=== PATIENT | male | born 1975 | race Caucasian/White ===

== ENCOUNTER 2017-12-09 00:41 | Outpatient (CLI) | payer MEDICARE, MEDICAID, SELFPAY ==
--- NOTE | 2017-12-09 15:06 | DI.US_ITS ---
SYMPTOMS/DIAGNOSIS: BLADDER WALL THICKENING, N32.89, ? HYDRONEPHROSIS RENAL ULTRASOUND: Comparison is made with CT of the abdomen and pelvis dated September,, which showed prominent thickening of the bladder wall. The bladder wall appears thick on the current exam at 7 mm while the bladder was distended. The prevoid volume measured 149 cc. The postvoid residual measured 11 cc. The wall also appears mildly trabeculated. No focal masses are identified. The kidneys appear small in size, but show normal parenchymal thickness and echogenicity. No hydronephrosis or perinephric collections are seen. The right kidney measures 8.9 cm in length. The left kidney measures 8.5 cm in length. IMPRESSION: Thickened, trabeculated bladder wall. No evidence of hydronephrosis.
== END 2017-12-09 01:01 ==
PROVIDERS: PCP Family Medicine; Visit Provider Urology
DX: N32.89 Other specified disorders of bladder (principal)
CPT/HCPCS: 76770

== ENCOUNTER → 2017-12-09 14:58 | Outpatient (BNVA) | payer MEDICARE, MEDICAID, SELFPAY | PROVIDERS: PCP Family Medicine; Visit Provider Urology | DX: R69 Illness, unspecified (principal) ==

== ENCOUNTER 2018-12-22 00:46 | Outpatient (CLI) | payer MEDICARE, MEDICAID, SELFPAY ==
--- NOTE | 2018-12-22 14:02 | DI.US_ITS ---
EXAM: US RENAL CLINICAL HISTORY: bladder wall thickening, ?Hydronephrosis, N32.89. TECHNIQUE: Ultrasound was performed using standard protocol. COMPARISON: US renal from 12/09/2017 FINDINGS: The right kidney measures 8.9 x 4.0 x 4.4 cm. The left kidney measures 8.9 x 5.4 x 3.7 cm. There is n o evidence of hydronephrosis or nephrolithiasis. The prevoid bladder contains 44 cc, the postvoid bl adder contains 0. Bilateral ureteral jets are visualized. The bladder wall is 2 mm thick and there i s a question regarding mild trabeculation.
== END 2018-12-22 01:06 ==
PROVIDERS: PCP Family Medicine; Visit Provider Urology
DX: N32.89 Other specified disorders of bladder (principal); Q90.9 Down syndrome, unspecified
CPT/HCPCS: 76770; 99213

== ENCOUNTER 2019-04-15 12:02 | Outpatient (REF) | payer MEDICARE, MEDICAID, SELFPAY ==
[2019-04-15 18:33] LABS: TSH (W/Ref FT4) 2.62 uIU/mL (0.36-3.74)
== END 2019-04-15 12:22 ==
LOC: LBN 12:02
PROVIDERS: PCP Family Medicine; Visit Provider Family Medicine
DX: R63.4 Abnormal weight loss (principal)
CPT/HCPCS: 84443

== ENCOUNTER 2019-05-31 07:47 | Outpatient (CLI) | payer MEDICARE, MEDICAID, SELFPAY ==
[2019-05-31 09:14] LABS: ALT 27 U/L (16-63); AST 23 U/L (15-37); Albumin 3.4 g/dL (3.4-5.0); Alkaline Phosphatase 60 U/L (46-116); Anion Gap 5.7 mmol/L (3-11); BUN 26 mg/dL (7-18); Bilirubin, Total 0.4 mg/dL (0.2-1.0); CO2 31.3 mmol/L (21.0-32.0); CREATININE 1.37 mg/dL (0.70-1.30); Calcium 8.5 mg/dL (8.5-10.1); Chloride 107 mmol/L (98-107); Estimated GFR 55.94 (mL/min/1.73m2); Glucose 88 mg/dL (74-106); Potassium 4.7 mmol/L (3.5-5.1); Sodium 144 mmol/L (136-145); Total Protein 6.5 g/dL (6.4-8.2)
[2019-06-01 10:26] LABS: Prealbumin 29 mg/dL (20-40)
[2019-06-02 13:10] LABS: Tissue Transglutaminase Ab IgA <1.2 U/mL; Tissue Transglutaminase Ab IgG 6.2 U/mL
== END 2019-05-31 08:07 ==
PROVIDERS: PCP Family Medicine; Visit Provider Psychiatry & Neurology Child & Adolescent Psychiatry
DX: R63.4 Abnormal weight loss (principal)
CPT/HCPCS: 36415; 80053; 83516; 84134

== ENCOUNTER 2019-09-07 14:37 | Outpatient (REF) | payer MEDICARE, MEDICAID, SELFPAY ==
[2019-09-07 18:57] LABS: Abs Immature Grans 0.01 k/cumm (0.0-0.09); Absolute Basophil Count 0.05 k/cumm (0.0-0.2); Absolute Eosinophil Count 0.02 k/cumm (0.0-0.7); Absolute Lymphocyte Count 0.83 k/cumm (1.2-3.4); Absolute Monocyte Count 0.41 k/cumm (0.11-0.7); Absolute Neutrophil Count 3.01 k/cumm (1.2-6.7); Basophils % 1.2; Eosinophils % 0.5; HCT 41.1 % (40.0-50.0); HGB 14.1 g/dL (13.5-17.5); Immature Grans % 0.2 %; Lymphocytes % 19.2; Mean Corp. HGB Concentration 34.3 g/dL (32.0-36.0); Mean Corpuscular Hemoglobin 33.3 pg (27.0-33.0); Mean Corpuscular Volume 97.2 fL (80-95); Mean Platelet Volume 10.9 fL (8.0-11.0); Monocytes % 9.5; Neutrophils % 69.4; Platelet Count 190 x1000/uL (130-400); RBC 4.23 m/cumm (4.50-6.00); RBC Distribution Width 13.2 % (11.8-14.1); White Blood Cell Count 4.33 k/cumm (4.4-10.8)
[2019-09-07 19:09] LABS: Creatine Kinase 66 U/L (39-308); TSH (W/Ref FT4) 1.79 uIU/mL (0.36-3.74)
[2019-09-07 19:26] LABS: ESR 10 mm/hr (0-15)
[2019-09-09 13:03] LABS: Lyme Ab w Rflx to Lyme Confirm Negative (Negative)
[2019-09-10 20:05] LABS: Anaplasma phagocytophilum Negative (Negative); B. miyamotoi PCR Negative (Negative); Babesia divergens/MO-1 Negative (Negative); Babesia duncani Negative (Negative); Babesia microti Negative (Negative); Ehrlichia chaffeensis Negative (Negative); Ehrlichia ewingii/canis Negative (Negative); Ehrlichia muris eauclairensis Negative (Negative)
== END 2019-09-07 14:57 ==
LOC: LBN 14:37
PROVIDERS: PCP Family Medicine; Visit Provider Family Medicine
DX: R63.4 Abnormal weight loss (principal); Z79.1 Long term (current) use of non-steroidal anti-inflammatories (NSAID); I82.502 Chronic embolism and thrombosis of unspecified deep veins of left lower extremity; Q90.9 Down syndrome, unspecified
CPT/HCPCS: 82550; 85652; 87798; 84443; 85025; 86618

== ENCOUNTER 2019-10-18 15:12 | Outpatient (REF) | payer MEDICARE, MEDICAID, SELFPAY | END 2019-10-18 15:32 | LOC: LBN 15:12 | PROVIDERS: PCP Family Medicine; Visit Provider Family Medicine | DX: R63.4 Abnormal weight loss (principal) | CPT/HCPCS: 82710; 87177 ==

== ENCOUNTER 2020-08-28 10:50 | Emergency (ER) | payer MEDICARE, MEDICAID, SELFPAY ==
[2020-08-28 10:54] VITALS: BP 99/50; PULSE 53; RESP 20; TEMP 36.6; O2SAT 100
--- NOTE | 2020-08-28 11:17 | ED.GENADUL_ITS ---
Discharge Plan Disposition Patient Disposition: HOME Condition: Good Discharge Details Clinical Impression: Muscle strain Primary Care Provider: Mata Herrmann ED Provider: Yesy Orellana Home Meds and New Rx's Prescriptions: Continued clotrimazole 1 % cream 1 applic TP BID Qty: 30 RF: 1 trazodone 50 mg tablet 25 mg PO QHS PRNRF: 0 Hold Instructions: Changed by Provider multivitamin [Once Daily] 1 EACH tablet 1 ea PO DAILY Qty: 90 RF: 3 calcium carbonate-vitamin D3 [Calcium 600 + D(3)] 1 EACH tablet 2 ea PO DAILY Qty: 180 RF: 3 acetaminophen 500 MG tablet 500 mg PO Q6H PRN Qty: 90 RF: 0 warfarin 5 mg tablet 5 mg PO DIRECTED Qty: 105 RF: 3 aripiprazole [Abilify] 5 mg tablet 2 mg PO DAILY RF: 0 Discharge Instructions Instructions: Muscle Strain (ED) Additional Instructions: Encourage rest, ice or heat, stretching, elevation. May use Tylenol to help with discomfort. INR 2.0 today. Please follow-up with primary care in 2 weeks for reevaluation. If you develop any new worsening symptoms please seek care ur gently once again. Referrals: Mata Herrmann DO [Primary Care Provider] - Discharge Data Discharge Date/Time-TO BE ENTERED AT DEPARTURE: 08/28/20 12:49 Medical Decision Making Patient is a pleasant 45-year-old male brought in by his caregiver with concerns for swelling on the posterior aspect of his left thigh. No known trauma. Past medical history pertinent for ADHD, bilateral DVTs, Down syndrome, she used Covid syndrome, hypercoagulable. Patient was picked up by caregiver this morning. She reports that he was tugging at his left thigh. When she evaluated she is concerned for swelling and erythema. Patient not complaining of pain at this time. On exam, patient appears nontoxic. Patient is hypertensive but this is baseline for the patient. Heart rate is also in the 50s which again is apical for him. Lungs are clear. Denies any shortness of breath. Exam of the left lower extremity there is no significant abnormality. He does have a small amount of swelling along the muscle body of the hamstring. No tenderness. Patient has a rash that spreads over the buttock and down the posterior aspect of both thighs. This is not red, hot or tender. More consistent with chronic discoloration or changes. He has been treated for fungal infection in this area historically. Tenderness attachments appear to be intact, no bruising or evidence of trauma. He has good strength bilaterally. No abnormality noted on the anterior aspect. 2+ distal pulses. Does have some varicose veins along the medial thighs bilaterally, slightly more prominent on the left than the right. INR was last checked 2 weeks ago and is 2.4. Patient does not clinically appear consistent with DVT. However, given his history I do feel that evaluation with D-dimer and checking INR would be appropriate. Most consistent with muscular source of swelling and discomfort. I see no evidence of significant trauma. Will also check for electrolyte abnormalities that may be causing muscle spasm. Per home care provider, patient drinks large amount of water. Labs reviewed. No leukocytosis. Stable H&H. D-dimer within normal limits. INR 2. No significant electrolyte abnormalities. Creatinine 1.3 which is baseline for the patient. Discussed these findings with the patient as well as his home care provider. They are reporting at this time that more history was obtained from family who was with the patient htis weekend. Sounds like this may have been brought on by riding a bike and having difficulty switching gears. I advised to treat for muscular discomfort. Encouraged rest, ice and/or heat, Tylenol as needed for discomfort. We will continue warfarin at current dosing. Advise follow-up with primary care in 2 weeks for reevaluation. All the questions and concerns were addressed in agreement with plan. HPI General Mode of arrival: ambulatory . Date/Time Provider Initiated Documentation: 08/28/20 11:14 . Limitations to Documentation: no limitations (home care provider helping with hx) . Information obtained by: patient, family and RN notes reviewed . History of Present Illness 45 year old M presents to the emergency department with the chief complaint of left posterior thigh pain, Quality is described as aching, and is localized to the left and lower extremity. Patient reports no radiation. Patient started experiencing this unknown and it has been constan t. No relieving factors improve symptom(s), No exacerbating factors reported . Patient notes no other symptoms.; denies chest pain, fever/chills and shortness of breath. Patient did receive the following treatments prior to arrival, none Related Data Home Medications Medication Instructions Recorded Confirmed multivitamin [Once Daily] 1 ea PO DAILY #90 tab 09/05/14 08/28/20 calcium carbonate-vitamin D3 2 ea PO DAILY #180 cap 05/15/15 08/28/20 [Calcium 600 + D(3)] acetaminophen 500 mg PO Q6H PRN #90 tab-cap 07/31/17 08/28/20 clotrimazole 1 % topical cream 1 applic TP BID #30 gm 06/22/18 08/28/20 trazodone 50 mg tablet 25 mg PO QHS PRN tab 08/31/18 04/07/20 warfarin 5 mg tablet 5 mg PO DIRECTED #105 tab 09/02/19 08/28/20 aripiprazole 5 mg tablet 2 mg PO DAILY tab 09/27/19 08/28/20 Previous Rx's Medication Instructions Recorded acetaminophen 500 mg PO Q6H PRN #90 tab-cap 07/31/17 clotrimazole 1 % topical cream 1 applic TP BID #30 gm 06/22/18 warfarin 5 mg tablet 5 mg PO DIRECTED #105 tab 09/02/19 Allergies Allergy/AdvReac Type Severity Reaction Status Date / Time bacitracin [From Cortisporin] Allergy Unknown ear drops Verified 08/28/20 10:59 colistin Allergy Unknown unknown Verified 08/28/20 10:59 hydrocortisone Allergy Unknown unknown Verified 08/28/20 10:59 neomycin sulfate Allergy Unknown ear drops Verified 08/28/20 10:59 [From Cortisporin] polymyxin B Allergy Unknown ear drops Verified 08/28/20 10:59 [From Cortisporin] THONZONUM Allergy Unknown unknown Uncoded 08/28/20 10:59 General Stated Complaint: Vascular MING: 3 Review of Systems Constitutional Constitutional: Reports as per HPI, Denies chills, Denies fever(s), Denies headache(s) and Denies weakness ENT Ears, Nose, Mouth, and Throat: Denies headache(s) Cardiovascular Cardiovascular: Reports as per HPI Respiratory Respiratory: Reports as per HPI and Denies cough Musculoskeletal Musculoskeletal: Reports as per HPI and Denies tingling Integumentary/Breasts Skin/Breast: Reports as per HPI, Reports rash and Denies wounds Neurologic Neurologic: Reports as per HPI, Denies headache(s), Denies tingling, Denies paresthesias and Denies weakness [facility] Medical History (Updated 08/28/20 @ 12:44 by ESTHER Reyez) ADHD 02/12/10 Attention-deficit hyperactivity disorder, predominantly hyperactive type (06/04/11) rx Dr Art johnson ([facility]) Chronic venous embolism and thrombosis of deep vessels of distal end of both lo wer extremities (06/04/11) Depression 11/30/99 Down's syndrome 09/11/05 DVT (deep venous thrombosis) DVT (deep venous thrombosis) DVT (deep venous thrombosis) left calf 10/01/07 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 Hypercoagulable state, primary (05/01/10) antiphospholipid syndrome: positive Lupus anticoagulant; elevated d-dimer; prior DVT L leg 2007 and superficial phlebitis L leg 2008 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 Suicide Sister Celina's disease age unknown Social History Smoking/Tobacco Use Status: Never Smoking risk assessment performed?: Yes Alcohol Intake: never Drug use: Never Caregiver/Support person: Yes Household members: family and caregiver Housing: house Number of Children: 0 Communication Needs: Corrective Lenses and Language Barriers current occupation: part maker cleaning [employer] What type of physical activity do you participate in: regular exercise Duration: < 15 minutes/day Frequency: 5-6 times per week Seatbelt use: always Drive intox or ride w/intox fast food delivery driver: No Working smoke detector in home: Yes Carbon monox detector in home: Yes Exam Const General: cooperative, healthy appearing, comfortable, no acute distress, well developed and well groomed Nutritional Appearance: average body habitus and well nourished Orientation: alert and awake Resp Effort & Inspection: normal respiratory effort, able to speak in complete sentences and no respiratory distress Auscultation: clear to auscultation bilaterally Cardio Rate: regular rate Rhythm: regular rhythm Heart Sounds: S1 normal and S2 normal Skin General skin exam: other (chronic appearing discoloration to buttock) Full body images: 1. Brownish pink discoloration. No pain with palpation. Not hot. No focal area of pain/fluctuance. Soft. Not consistent with infection. Neuro General: patient alert and patient awake Cognition: normal cognition Speech: speech normal Gait: normal gait Motor: muscle tone normal throughout Sensory Exam: no sensory deficits noted Extrem Left lower extremity: normal to inspection, full ROM, normal capillary refill, no joint enlargement, hip/thigh Details: normal to inspection, swelling (posterior medial muscle body feels tight, no real swelling) and normal ROM; no tenderness, no abrasions, no lacerations, no ecchymosis, no crepitus, no deformity and no unusual warmth, knee Details: normal to inspection and normal ROM; no tenderness, no swelling and no deformity, lower leg Details: normal to inspection and no edema; no tenderness, no localized swelling and no palpable cords, ankle Details: normal to inspection, no edema and normal ROM; no tenderness, no swelling and achilles tendon exam normal and foot Details: vascular exam Details: dorsalis pedis pulse present; no edema Psych Appearance: grossly normal and well kempt Mental Status: mental status grossly normal Speech and Movement: speech and movement normal Course Vital Signs Vital signs: Vital Signs Temperature 36.6 C 08/28/20 10:54 Pulse 53 L 08/28/20 10:54 Respiratory Rate 20 08/28/20 10:54 Blood Pressure 99/50 L 08/28/20 10:54 Pulse Oximetry 100 08/28/20 10:54 Temperature 36.6 C 08/28/20 10:54 Temperature Source Skin 08/28/20 10:54 Pulse 53 L 08/28/20 10:54 Respiratory Rate 20 08/28/20 10:54 Respiratory Effort Non-Labored 08/28/20 11:00 Blood Pressure 99/50 L 08/28/20 10:54 Blood Pressure Position Sitting 08/28/20 10:54 Pulse Oximetry 100 08/28/20 10:54 Oxygen Delivery Method Room Air 08/28/20 10:54 Oxygen Flow Rate 0 08/28/20 10:54 Pain Level 10 08/28/20 10:54
[2020-08-28 11:53] LABS: Abs Immature Grans 0.02 10^3/uL (0.0-0.06); Absolute Basophil Count 0.08 10^3/uL (0.0-0.2); Absolute Eosinophil Count 0.04 10^3/uL (0.0-0.7); Absolute Lymphocyte Count 1.05 10^3/uL (1.2-3.4); Absolute Monocyte Count 0.61 10^3/uL (0.1-0.8); Absolute Neutrophil Count 3.94 10^3/uL (1.2-6.7); Basophils % 1.4; Eosinophils % 0.7; HCT 42.4 % (40.0-50.0); HGB 14.5 g/dL (13.5-17.5); Immature Grans % 0.3; Lymphocytes % 18.3; MCH 33.3 pg (27.0-33.0); MCHC 34.2 % (32.0-36.0); MCV 97.5 fL (80-95); MPV 10.2 fL (8.0-11.0); Monocytes % 10.6; Neutrophils % 68.7; Nucleated RBC 0 %; Platelet Count 200 10^3/uL (130-400); RBC 4.35 10^6/uL (4.36-5.78); RDW 13.6 % (11.8-14.1); RDW-SD 49.4 fL; WBC 5.74 10^3/uL (4.4-10.8)
[2020-08-28 12:08] LABS: BUN 28 mg/dL (7-18); CREATININE 1.3 mg/dL (0.70-1.30); Calcium 8.7 mg/dL (8.5-10.1); Chloride 105 mmol/L (98-107); Estimated GFR 59.17 (mL/min/1.73m2); Glucose 94 mg/dL (74-106); PTT Activated 27.2 sec (21.0-27.5); Potassium 4.2 mmol/L (3.5-5.1); Prothrombin Time 20.1 sec (9.3-11.0); Sodium 142 mmol/L (136-145)
[2020-08-28 12:31] LABS: D-Dimer 498 ng/mlFEU (<500)
== END 2020-08-28 12:49 | disposition home or self-care (01) ==
PROVIDERS: Emergency Provider Physician Assistant; PCP Family Medicine
DX: S76.312A Strain of muscle, fascia and tendon of the posterior muscle group at thigh level, left thigh, initial encounter (principal); X58.XXXA Exposure to other specified factors, initial encounter; R21 Rash and other nonspecific skin eruption; Z86.718 Personal history of other venous thrombosis and embolism
CPT/HCPCS: 36415; 80048; 99284; 85025; 85379; 85610; 85730; 99283

== ENCOUNTER 2021-04-12 08:05 | Emergency (ER) | payer MEDICARE, MEDICAID, SELFPAY ==
[2021-04-12] VITALS (35 sets, daily range): BP systolic 91–104; BP diastolic 42–70; PULSE 61–82; RESP 10–28; TEMP 36.8–37.8; O2SAT 95–100
--- NOTE | 2021-04-12 08:00 | RT.EKG_ITS ---
APPROVED REPORT Exam: Resting ECG Reason for Exam: SYNCOPAL EPISODE Patient Location: E HR:65 bpm ECG Measurements Heart Rate 65 AXIS MS 131 P 68 QRSd 101 QRS 61 QT 363 T 57 QTc 378 Conclusion Sinus rhythm...normal P axis, V-rate 60- 99 ST elev, probable normal early repol pattern...ST elevation, age<55 PHysician: minimal <1mm elevation in V1 and V3. Does not meet STEMI criterion, likely repolerization, no depression
--- NOTE | 2021-04-12 08:30 | ED.GENADUL_ITS ---
Discharge Plan Disposition Patient Disposition: HOME Condition: Stable Discharge Details Clinical Impression: Orthostatic hypotension, Cellulitis Primary Care Provider: Mata Herrmann ED Provider: Jake Schmid Home Meds and New Rx's Prescriptions: New doxycycline hyclate 100 mg tablet 100 mg PO BID 7 Days Qty: 14 RF: 0 Continued clotrimazole 1 % cream 1 applic TP BID Qty: 30 RF: 1 multivitamin [Once Daily] 1 EACH tablet 1 ea PO DAILY Qty: 90 RF: 3 calcium carbonate-vitamin D3 [Calcium 600 + D(3)] 1 EACH tablet 2 ea PO DAILY Qty: 180 RF: 3 acetaminophen 500 MG tablet 500 mg PO Q6H PRN Qty: 90 RF: 0 aripiprazole [Abilify] 5 mg tablet 2 mg PO DAILY RF: 0 warfarin 5 mg tablet 5 mg PO DIRECTED Qty: 114 RF: 3 Discharge Instructions Instructions: Cellulitis (ED), Syncope (ED) Additional Instructions: Continue to monitor symptoms. If you notice any excessive spread of redness to the chest, worsening of condition, or new symptoms that are concerning please return to the emergency department immediately. Otherwise watch for any bleeding as there is a slight potential interaction between blood thinner and antibiotic. It is important that you follow primary care provider next week for reassessment of condition and to ensure improvement. Referrals: Mata Herrmann DO [Primary Care Provider] - 3 days (Prefer to have follow-up early next week for reassessment patient's condition.) Discharge Data Discharge Date/Time-TO BE ENTERED AT DEPARTURE: 04/12/21 12:10 Medical Decision Making Patient presenting to emergency department with caregiver due to near syncopal episode. Caregiver reports that patient was sitting and eating breakfast when he stood up then started to become dazed. She could tell he was getting somewhat weak and supported him slowly to the ground. Her and her were able to assist him to lying on the couch and after a couple minutes patient was back to normal ambulatory with no further symptoms. Patient denies pain or discomfort, focal neurological deficits, and patient states memory of the entire event. Caregiver denies any full syncope or loss of consciousness. History is somewhat limited due to patient having communication deficit due to Down syndrome. Plan to check labs including EKG, INR, and provide fluid support given low blood pressure. Did review previous blood pressures and this is not completely abnormal but chief working diagnosis at this time is orthostatic hypotension. 0900-reviewed labs that does show a leukocytosis. Nurse did report that patient had abnormal lung sounds in the left lower lobe with deep inspiration. I did not appreciate this on initial exam but will plan to do COVID testing and chest x-ray. Patient is now febrile so patient given acetaminophen pending results.. 1010 patient COVID-negative 1100-chest x-ray is unremarkable for acute findings and no signs of pneumonia. D-dimer is negative so doubt thromboembolic event. Largest suspicion is of orthostatic hypotension for initial event but secondary cellulitic infection of the anterior right chest wall. Patient's caregiver and siblings do state patient has history of cellulitis. Patient placed on antibiotic and return and follow-up precautions were discussed. Patient will be staying with his brother over the weekend and his brother is present discussed findings along with all of these recommendations. After discussion of diagnosis and plan of care patient/family care including for has no further needs, questions, or concerns and states clear understanding to return to the emergency department for any worsening symptoms. Patient placed on follow-up list for primary care follow-up to recheck cellulitis. Did discuss with brother and patient in light of potential interaction of warfarin and doxycycline. Given significant area of erythema along with systemic symptoms of fever I do feel that broader spectrum would be preferred over Keflex. After discussion of risk versus benefit there was no further questions and brother understood to monitor patient while on both medications. Lab Data Lab results reviewed: Yes I reviewed the patient's lab results. Labs: Laboratory Tests Range/Units 04/12/21 04/12/21 04/12/21 08:45 08:45 08:45 WBC (4.4-10.8) 10^3/uL 12.73 H RBC (4.36-5.78) 10^6/uL 4.62 Hgb (13.5-17.5) g/dL 15.2 Hct (40.0-50.0) % 45.4 MCV (80-95) fL 98.3 H MCH (27.0-33.0) pg 32.9 MCHC (32.0-36.0) % 33.5 RDW (11.8-14.1) % 13.4 Plt Count (130-400) 10^3/uL 161 MPV (8.0-11.0) fL 10.1 Immature Gran % 0.7 Neutrophils % 87.5 Lymphocytes % 4.4 Monocytes % 6.9 Eosinophils % 0.0 Basophils % 0.5 Nucleated RBC % % 0 Absolute Neutrophils (1.2-6.7) 10^3/uL 11.14 H Absolute Lymphocytes (1.2-3.4) 10^3/uL 0.56 L Absolute Monocytes (0.1-0.8) 10^3/uL 0.88 H Absolute Eosinophils (0.0-0.7) 10^3/uL 0.00 Absolute Basophils (0.0-0.2) 10^3/uL 0.06 PT (9.3-11.0) sec 20.2 H INR (0.9-1.1) 2.0 H APTT (21.0-27.5) sec 34.1 H D-Dimer (<500) ng/mlFEU Sodium (136-145) mmol/L 137 Potassium (3.5-5.1) mmol/L 4.2 Chloride (98-107) mmol/L 100 Carbon Dioxide (21.0-32.0) mmol/L 31.7 Anion Gap (3-11) mmol/L 5.3 BUN (7-18) mg/dL 18 Creatinine (0.70-1.30) mg/dL 1.5 H Estimated GFR/1.73 m2 (mL/min/1.73m2) 49.95 Glucose (74-106) mg/dL 141 H Calcium (8.5-10.1) mg/dL 8.7 Magnesium (1.8-2.4) mg/dL 1.8 Total Bilirubin (0.2-1.0) mg/dL 0.5 AST (15-37) U/L 25 ALT (16-63) U/L 25 Alkaline Phosphatase (46-116) U/L 73 Troponin I (<or=60) ng/L 52 Total Protein (6.4-8.2) g/dL 7.3 Albumin (3.4-5.0) g/dL 3.4 Urine Color Urine Clarity Urine pH Ur Specific [place] Urine Protein Urine Ketones Urine Blood Urine Nitrite Urine Bilirubin Urine Urobilinogen Ur Leukocyte Esterase Urine Glucose COVID-19 Source SARS-CoV-2 (PCR) (Negative) Range/Units 04/12/21 04/12/21 04/12/21 08:45 09:10 09:44 WBC (4.4-10.8) 10^3/uL RBC (4.36-5.78) 10^6/uL Hgb (13.5-17.5) g/dL Hct (40.0-50.0) % MCV (80-95) fL MCH (27.0-33.0) pg MCHC (32.0-36.0) % RDW (11.8-14.1) % Plt Count (130-400) 10^3/uL MPV (8.0-11.0) fL Immature Gran % Neutrophils % Lymphocytes % Monocytes % Eosinophils % Basophils % Nucleated RBC % % Absolute Neutrophils (1.2-6.7) 10^3/uL Absolute Lymphocytes (1.2-3.4) 10^3/uL Absolute Monocytes (0.1-0.8) 10^3/uL Absolute Eosinophils (0.0-0.7) 10^3/uL Absolute Basophils (0.0-0.2) 10^3/uL PT (9.3-11.0) sec INR (0.9-1.1) APTT (21.0-27.5) sec D-Dimer (<500) ng/mlFEU 437 Sodium (136-145) mmol/L Potassium (3.5-5.1) mmol/L Chloride (98-107) mmol/L Carbon Dioxide (21.0-32.0) mmol/L Anion Gap (3-11) mmol/L BUN (7-18) mg/dL Creatinine (0.70-1.30) mg/dL Estimated GFR/1.73 m2 (mL/min/1.73m2) Glucose (74-106) mg/dL Calcium (8.5-10.1) mg/dL Magnesium (1.8-2.4) mg/dL Total Bilirubin (0.2-1.0) mg/dL AST (15-37) U/L ALT (16-63) U/L Alkaline Phosphatase (46-116) U/L Troponin I (<or=60) ng/L Total Protein (6.4-8.2) g/dL Albumin (3.4-5.0) g/dL Urine Color Cancelled Urine Clarity Cancelled Urine pH Cancelled Ur Specific [place] Cancelled Urine Protein Cancelled Urine Ketones Cancelled Urine Blood Cancelled Urine Nitrite Cancelled Urine Bilirubin Cancelled Urine Urobilinogen Cancelled Ur Leukocyte Esterase Cancelled Urine Glucose Cancelled COVID-19 Source Nasal/Nares SARS-CoV-2 (PCR) (Negative) Negative Range/Units 04/12/21 11:09 WBC (4.4-10.8) 10^3/uL RBC (4.36-5.78) 10^6/uL Hgb (13.5-17.5) g/dL Hct (40.0-50.0) % MCV (80-95) fL MCH (27.0-33.0) pg MCHC (32.0-36.0) % RDW (11.8-14.1) % Plt Count (130-400) 10^3/uL MPV (8.0-11.0) fL Immature Gran % Neutrophils % Lymphocytes % Monocytes % Eosinophils % Basophils % Nucleated RBC % % Absolute Neutrophils (1.2-6.7) 10^3/uL Absolute Lymphocytes (1.2-3.4) 10^3/uL Absolute Monocytes (0.1-0.8) 10^3/uL Absolute Eosinophils (0.0-0.7) 10^3/uL Absolute Basophils (0.0-0.2) 10^3/uL PT (9.3-11.0) sec INR (0.9-1.1) APTT (21.0-27.5) sec D-Dimer (<500) ng/mlFEU Sodium (136-145) mmol/L Potassium (3.5-5.1) mmol/L Chloride (98-107) mmol/L Carbon Dioxide (21.0-32.0) mmol/L Anion Gap (3-11) mmol/L BUN (7-18) mg/dL Creatinine (0.70-1.30) mg/dL Estimated GFR/1.73 m2 (mL/min/1.73m2) Glucose (74-106) mg/dL Calcium (8.5-10.1) mg/dL Magnesium (1.8-2.4) mg/dL Total Bilirubin (0.2-1.0) mg/dL AST (15-37) U/L ALT (16-63) U/L Alkaline Phosphatase (46-116) U/L Troponin I (<or=60) ng/L Cancelled Total Protein (6.4-8.2) g/dL Albumin (3.4-5.0) g/dL Urine Color Urine Clarity Urine pH Ur Specific [place] Urine Protein Urine Ketones Urine Blood Urine Nitrite Urine Bilirubin Urine Urobilinogen Ur Leukocyte Esterase Urine Glucose COVID-19 Source SARS-CoV-2 (PCR) (Negative) HPI General Mode of arrival: ambulatory . Date/Time Provider Initiated Documentation: 04/12/21 08:06 . Limitations to Documentation: no limitations . Information obtained by: patient and family (Caregiver) . History of Present Illness 46 year old M presents to the emergency department with the chief complaint of near syncope , Quality is described as other (denies pain), Patient started experiencing this hour(s) (1) and it has been now resolved. other things that improve symptom(s), (lying down) Movement worsens symptoms (standing up) . Patient notes no other symptoms.. Patient did receive the following treatments prior to arrival, none Related Data Home Medications Medication Instructions Recorded Confirmed multivitamin [Once Daily] 1 ea PO DAILY #90 tab 09/05/14 04/12/21 calcium carbonate-vitamin D3 2 ea PO DAILY #180 cap 05/15/15 04/12/21 [Calcium 600 + D(3)] acetaminophen 500 mg PO Q6H PRN #90 tab-cap 07/31/17 04/12/21 clotrimazole 1 % topical cream 1 applic TP BID #30 gm 06/22/18 04/12/21 aripiprazole 5 mg tablet 2 mg PO DAILY tab 09/27/19 04/12/21 warfarin 5 mg tablet 5 mg PO DIRECTED #114 tab 08/29/20 04/12/21 doxycycline hyclate 100 mg PO BID 7 Days #14 tab 04/12/21 Previous Rx's Medication Instructions Recorded acetaminophen 500 mg PO Q6H PRN #90 tab-cap 07/31/17 clotrimazole 1 % topical cream 1 applic TP BID #30 gm 06/22/18 warfarin 5 mg tablet 5 mg PO DIRECTED #114 tab 08/29/20 doxycycline hyclate 100 mg PO BID 7 Days #14 tab 04/12/21 Allergies Allergy/AdvReac Type Severity Reaction Status Date / Time bacitracin [From Cortisporin] Allergy Unknown ear drops Verified 04/12/21 08:18 colistin Allergy Unknown unknown Verified 04/12/21 08:18 hydrocortisone Allergy Unknown unknown Verified 04/12/21 08:18 neomycin sulfate Allergy Unknown ear drops Verified 04/12/21 08:18 [From Cortisporin] polymyxin B Allergy Unknown ear drops Verified 04/12/21 08:18 [From Cortisporin] THONZONUM Allergy Unknown unknown Uncoded 04/12/21 08:18 General Stated Complaint: Dizzy/Sync MING: 2 Review of Systems Constitutional Constitutional: Denies body ache(s), Denies chills, Denies fever(s), Denies frequent falls and Denies headache(s) ENT Ears, Nose, Mouth, and Throat: Reports dizziness and Denies headache(s) Cardiovascular Cardiovascular: Denies chest pain and Denies dyspnea Respiratory Respiratory: Denies dyspnea Gastrointestinal Gastrointestinal: Denies abdominal pain, Denies nausea and Denies vomiting Musculoskeletal Musculoskeletal: Denies joint swelling Integumentary/Breasts Skin/Breast: Reports rash (Transient reddened area to the right neck and chest) Neurologic Neurologic: Reports as per HPI, Denies behavioral changes, Reports dizziness, Denies frequent falls, Denies headache(s) and Denies sensory deficit Psychiatric Psychiatric: Denies behavioral changes PFSH All Active Problems (Updated 04/12/21 @ 11:33 by Jake Schmid NP) Cellulitis (Acute) Orthostatic hypotension (Acute) Impacted cerumen of both ears (Acute) Down syndrome (Chronic) memory problems 05/2015 Chronic venous embolism and thrombosis of deep vessels of distal end of both lower extremities (Chronic 06/04/11) Very low blood pressure reading determined by examination (Chronic 09/11/15) 80/48 L; no orthostasis; recommend liberalizing salt intake and fluids 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) 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 with INR goal of 2.0-3.0 (Chronic 06/04/11) Hypercoagulable state, primary (Chronic 05/01/10) antiphospholipid syndrome: positive Lupus anticoagulant; elevated d-dimer; prior DVT L leg 2007 and superficial phlebitis L leg 2008 Bladder wall thickening (Acute 11/25/16) Attention-deficit hyperactivity disorder, predominantly hyperactive type (Chronic 06/04/11) rx Dr Art johnson ([facility]) Medical History ADHD 02/12/10 Depression 11/30/99 Down's syndrome 09/11/05 DVT (deep venous thrombosis) DVT (deep venous thrombosis) DVT (deep venous thrombosis) left calf 10/01/07 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 Suicide Sister Celina's disease age unknown Social History Smoking/Tobacco Use Status: Never Smoking risk assessment performed?: Yes Alcohol Intake: current Alcohol Intake frequency: holidays/special occasions only Alcohol type: beer Drug use: Never Caregiver/Support person: Yes (Abena) Foster care: No Household members: family and caregiver Housing: house Number of Children: 0 Communication Needs: Corrective Lenses and Language Barriers current occupation: parts representative cleaning [email or web address] What type of physical activity do you participate in: regular exercise Duration: < 15 minutes/day Frequency: 5-6 times per week Seatbelt use: always Drive intox or ride w/intox road train driver: No Working smoke detector in home: Yes Carbon monox detector in home: Yes Do you feel safe at home: Yes Do you feel safe in your relationship?: Yes Victim of physical abuse: No Victim of emotional abuse: No Victim of sexual abuse: No Exam Const General: cooperative, healthy appearing, comfortable, no acute distress, not diaphoretic and not ill appearing Nutritional Appearance: average body habitus Orientation: alert and awake Neck Neck: normal visual inspection, full ROM, trachea midline, supple and no anterior neck swelling Carotids: normal carotid upstroke and no bruits Chest Chest: rash Chest/axillae images: 1. area of erythema Resp Effort & Inspection: normal respiratory effort and able to speak in complete sentences Auscultation: clear to auscultation bilaterally Cardio Jugular venous pressure: no JVD Palpation: normal PMI Rate: regular rate Rhythm: regular rhythm Heart Sounds: S1 normal, S2 normal, no click, no gallops, no murmurs and no rubs Bruits: no abdominal aortic bruits and no carotid bruits Pulses: radial pulses present bilaterally 2+ GI Auscultation: normal bowel sounds Skin General skin exam: no ecchymosis, erythema and no induration Neuro General: patient alert, patient awake, gait normal, tone normal, moves all extremities, no meningeal signs, no focal motor deficits and not confused Cranial Nerves: PERRL, accommodation normal, EOM intact bilaterally, no nystagmus, facial strength normal, tongue midline, hearing normal, able to rotate head bilaterally and able to elevate shoulders bilaterally Gait: normal gait Motor: muscle tone normal throughout and strength 5/5 throughout Sensory Exam: no sensory deficits noted Course Vital Signs Vital signs: Vital Signs Temperature 37.6 C H 04/12/21 08:11 Pulse 70 04/12/21 08:11 Respiratory Rate 16 04/12/21 08:11 Blood Pressure 96/52 L 04/12/21 08:11 Pulse Oximetry 100 04/12/21 08:11 Temperature 37.6 C H 04/12/21 08:11 Temperature Source Temporal Artery Scan 04/12/21 08:11 Pulse 70 04/12/21 08:11 Respiratory Rate 16 04/12/21 08:11 Respiratory Effort Non-Labored 04/12/21 08:17 Blood Pressure 96/52 L 04/12/21 08:11 Pulse Oximetry 100 04/12/21 08:11 Oxygen Delivery Method Room Air 04/12/21 08:11 Oxygen Flow Rate 0 04/12/21 08:11 Pain Level 0 04/12/21 08:11 Lab/Test Results Lab/Test Results: Laboratory Tests Range/Units 04/12/21 11:09 Troponin I Cancelled
[2021-04-12] MEDS: Normal Saline Flush 10 ML SYR IVP ×2 (08:45→09:35)
[2021-04-12 08:59] LABS: Abs Immature Grans 0.09 10^3/uL (0.0-0.06); Absolute Lymphocyte Count 0.56 10^3/uL (1.2-3.4); Absolute Monocyte Count 0.88 10^3/uL (0.1-0.8); Basophils % 0.5; HCT 45.4 % (40.0-50.0); HGB 15.2 g/dL (13.5-17.5); Immature Grans % 0.7; Lymphocytes % 4.4; MCH 32.9 pg (27.0-33.0); MCHC 33.5 % (32.0-36.0); MCV 98.3 fL (80-95); MPV 10.1 fL (8.0-11.0); Monocytes % 6.9; Neutrophils % 87.5; Nucleated RBC 0 %; Platelet Count 161 10^3/uL (130-400); RBC 4.62 10^6/uL (4.36-5.78); RDW 13.4 % (11.8-14.1); RDW-SD 48.8 fL; WBC 12.73 10^3/uL (4.4-10.8)
[2021-04-12 09:00] LABS: Absolute Basophil Count 0.06 10^3/uL (0.0-0.2); Absolute Neutrophil Count 11.14 10^3/uL (1.2-6.7)
--- NOTE | 2021-04-12 09:00 | DI.RAD_ITS ---
Exam(s) XR PORTABLE CHEST AP EXAM: XR PORTABLE CHEST AP CLINICAL HISTORY: near syncope TECHNIQUE: 2D digital imaging was performed. COMPARISON: No exams were available for comparison FINDINGS: LUNGS: Clear. No pleural abnormality seen. HEART: Normal. MEDIASTINUM: Normal. BONES: Unremarkable. IMPRESSION: No acute pulmonary findings. DATA REPOSITORY: RADIATION DOSE DELIVERED:
[2021-04-12 09:16] LABS: PTT Activated 34.1 sec (21.0-27.5); Prothrombin Time 20.2 sec (9.3-11.0)
[2021-04-12 09:17] LABS: ALT 25 U/L (16-63); AST 25 U/L (15-37); Albumin 3.4 g/dL (3.4-5.0); Alkaline Phosphatase 73 U/L (46-116); Anion Gap 5.3 mmol/L (3-11); BUN 18 mg/dL (7-18); Bilirubin, Total 0.5 mg/dL (0.2-1.0); CO2 31.7 mmol/L (21.0-32.0); CREATININE 1.5 mg/dL (0.70-1.30); Calcium 8.7 mg/dL (8.5-10.1); Chloride 100 mmol/L (98-107); Estimated GFR 49.95 (mL/min/1.73m2); Glucose 141 mg/dL (74-106); Magnesium 1.8 mg/dL (1.8-2.4); Potassium 4.2 mmol/L (3.5-5.1); Sodium 137 mmol/L (136-145); Total Protein 7.3 g/dL (6.4-8.2); Troponin I 52 ng/L (<or=60)
[2021-04-12] MEDS: Normal Saline 500 ML IV (09:35)
[2021-04-12] MEDS: Acetaminophen 325 MG TAB 650 MG PO (09:38)
[2021-04-12 10:05] LABS: COVID-19 PCR Negative (Negative)
[2021-04-12 10:12] LABS: Source Nasal/Nares
[2021-04-12 11:05] LABS: D-Dimer 437 ng/mlFEU (<500)
--- NOTE | 2021-04-12 11:29 | NUR.NOTE ---
Referral faxed to [facility] for follow up next week for cellulitis. They are to call his brother Kavon for this appointment. Phone number [phone]. Donna Suresh Nursing Note:
[2021-04-12] MEDS: Doxycycline Hyclate 100 MG CAP PO (11:57)
== END 2021-04-12 12:10 | disposition home or self-care (01) ==
PROVIDERS: Emergency Provider Nurse Practitioner Family; PCP Family Medicine
DX: I95.1 Orthostatic hypotension (principal); L03.313 Cellulitis of chest wall
CPT/HCPCS: 36415; 80053; 87635; 93005; 96365; 96366; 99284; 71045; 81003; 83735; 84484; 85025; 85379; 85610; 85730; 93010

== ENCOUNTER 2021-06-05 10:25 | Outpatient (REF) | payer MEDICARE, MEDICAID, SELFPAY | END 2021-06-05 10:26 | disposition home or self-care (01) | LOC: LBN 10:25 | PROVIDERS: PCP Family Medicine; Visit Provider Family Medicine | DX: R41.3 Other amnesia (principal) | CPT/HCPCS: 87086 ==

== ENCOUNTER → 2023-11-19 14:58 | Outpatient (BNVA) | payer MEDICARE, MEDICAID, SELFPAY | PROVIDERS: PCP Family Medicine; Referring Provider Family Medicine; Visit Provider Podiatrist | DX: B35.1 Tinea unguium (principal); L60.3 Nail dystrophy; I87.2 Venous insufficiency (chronic) (peripheral); M79.671 Pain in right foot; M79.672 Pain in left foot | CPT/HCPCS: 11721 ==

== ENCOUNTER → 2024-04-07 13:48 | Outpatient (BNVA) | payer MEDICARE, MEDICAID, SELFPAY | PROVIDERS: PCP Family Medicine; Referring Provider Family Medicine; Visit Provider Podiatrist | DX: I73.00 Raynaud's syndrome without gangrene (principal); L60.3 Nail dystrophy; B35.1 Tinea unguium; I87.2 Venous insufficiency (chronic) (peripheral); M79.671 Pain in right foot; M79.672 Pain in left foot; R09.89 Other specified symptoms and signs involving the circulatory and respiratory systems; R60.0 Localized edema; R23.8 Other skin changes; I83.813 Varicose veins of bilateral lower extremities with pain; L65.8 Other specified nonscarring hair loss; L60.8 Other nail disorders; L60.2 Onychogryphosis | CPT/HCPCS: 11721 ==

== ENCOUNTER 2024-04-12 18:36 | Outpatient (REF) | payer MEDICARE, MEDICAID, SELFPAY ==
[2024-04-12 16:26] LABS: Bilirubin Negative (Negative); Blood Small (Negative); Clarity Clear (Clear); Glucose Negative (Negative); Ketones Negative (Negative); Leukocyte Esterase Negative (Negative); Nitrite Negative (Negative); Urobilinogen 0.2 mg/dL (Up to 0.2)
[2024-04-12 16:39] LABS: Bacteria Rare HPF (Negative); C & S Indicated? No; Casts Negative LPF (Negative); Crystals Negative HPF (Negative); Epithelial Cells Negative HPF (Negative); Mucus Trace (Negative); Other Cells Negative (Negative); WBC Negative HPF (0-5)
== END 2024-04-12 18:37 | disposition home or self-care (01) ==
LOC: LBN 18:36
PROVIDERS: PCP Family Medicine; Visit Provider Family Medicine
DX: R45.1 Restlessness and agitation (principal); Z79.01 Long term (current) use of anticoagulants
CPT/HCPCS: 81003; 81015

== ENCOUNTER → 2024-09-28 13:53 | Outpatient (BNVA) | payer MEDICARE, MEDICAID, SELFPAY | PROVIDERS: PCP Family Medicine; Referring Provider Family Medicine; Visit Provider Podiatrist | DX: L60.3 Nail dystrophy (principal); B35.1 Tinea unguium; M79.671 Pain in right foot; M79.672 Pain in left foot; I87.2 Venous insufficiency (chronic) (peripheral); I73.00 Raynaud's syndrome without gangrene; R60.0 Localized edema; R20.8 Other disturbances of skin sensation; I83.93 Asymptomatic varicose veins of bilateral lower extremities; L60.8 Other nail disorders; L65.9 Nonscarring hair loss, unspecified; R23.8 Other skin changes; L85.8 Other specified epidermal thickening; L60.2 Onychogryphosis | CPT/HCPCS: 11056; 11721 ==

== ENCOUNTER → 2025-01-04 13:12 | Outpatient (BNVA) | payer MEDICARE, MEDICAID, SELFPAY | PROVIDERS: PCP Family Medicine; Referring Provider Family Medicine; Visit Provider Podiatrist | DX: L60.3 Nail dystrophy (principal); B35.1 Tinea unguium; M79.671 Pain in right foot; M79.672 Pain in left foot; I73.00 Raynaud's syndrome without gangrene; I87.2 Venous insufficiency (chronic) (peripheral); R60.0 Localized edema; R20.8 Other disturbances of skin sensation; I83.93 Asymptomatic varicose veins of bilateral lower extremities; L60.8 Other nail disorders; L65.9 Nonscarring hair loss, unspecified; R23.4 Changes in skin texture; L85.8 Other specified epidermal thickening; L60.2 Onychogryphosis | CPT/HCPCS: 11056; 11721 ==